=== PATIENT | female | born 1965 | race Hispanic/Latino ===

== ENCOUNTER 2017-06-18 08:47 | Emergency (ER) | payer OTHER ==
[2017-06-18 09:17] LABS: EOSINOPHILS % (AUTO) 2.1 % (0.0-8.0); HEMATOCRIT 39.6 % (36-48); LYMPHOCYTES % (AUTO) 31.2 % (21.0-51.0); MEAN CORPUSCULAR HEMOGLOBIN 29.8 pg (27.0-33.0); MEAN CORPUSCULAR HGB CONC 34.5 g/dL (32.0-36.0); MEAN CORPUSCULAR VOLUME 86.4 fL (79-99); MONOCYTES % (AUTO) 7.4 % (3.0-13.0); NEUTROPHILS % (AUTO) 58.3 % (40.0-77.0); PLATELET COUNT (AUTO) 188 K/uL (130-400); RED BLOOD CELL COUNT(AUTO) 4.58 MIL/uL (4.00-5.50); RED CELL DISTRIBUTION WIDTH 13.4 % (11.0-15.5); WHITE BLOOD COUNT (AUTO) 4.7 K/uL (4.8-10.8)
[2017-06-18] MEDS ORDERED: SODIUM CHLORIDE 0.9% 1000ML 1,000 ML IV ONE (09:17)
[2017-06-18] MEDS ORDERED: ONDANSETRON HCL 4 MG/2 ML VIAL ONE (09:17)
[2017-06-18] MEDS ORDERED: MORPHINE SULFATE 8 MG/ML VIAL ONE (09:18)
[2017-06-18 09:30] LABS: CREATININE 0.6 mg/dL (0.5-1.5)
[2017-06-18 09:33] LABS: INR 0.92 (0.85-1.15); PROTHROMBIN TIME 9.7 SEC (9.6-11.6)
[2017-06-18] MEDS ORDERED: IOPAMIDOL-370 75 ML VIAL IV ONE (09:35)
[2017-06-18 09:39] LABS: ALBUMIN 3.5 g/dL (3.5-5.0); BILIRUBIN,TOTAL 0.3 mg/dL (0.2-1.0); TOTAL PROTEIN, SERUM 7.3 g/dL (6.0-8.3)
== END 2017-06-18 11:36 | disposition home or self-care (01) ==
LOC: EDH 08:47
DX: S29.012A Strain of muscle and tendon of back wall of thorax, initial encounter (principal); R07.89 Other chest pain; R51 Headache; I10 Essential (primary) hypertension; V49.49XA Driver injured in collision with other motor vehicles in traffic accident, initial encounter; Y93.89 Activity, other specified; Y92.89 Other specified places as the place of occurrence of the external cause; Y99.8 Other external cause status
CPT/HCPCS: 36415; 70450; 71045; 71260; 72125; 72170; 74177; 80053; 82550; 84484; 85025; 85610; 85730; 93005; 96361; 96374; 96375; 99285; J2270; J2405; J7030; Q9967